=== PATIENT | male | born 1950 | race Caucasian/White ===

== ENCOUNTER → 2020-05-04 08:30 | Outpatient (CLI) | payer OTHER, SELFPAY ==
[2020-05-03 11:32] VITALS: BMI 22.6
--- NOTE | 2020-05-04 08:38 | RAD_ITS ---
STUDY: BARIUM ENEMA. REASON FOR EXAM: Male, 69 years old. INCOMPLETE COLONOSCOPY FLUOROSCOPY TIME (if supplied): ( 61 seconds ) minutes/seconds. 18 images were obtained. TECHNIQUE: A [facility] film was obtained. Following this, contrast was introduced retrograde through the rectum. The entire colon was opacified. COMPARISON: None. FINDINGS: Nonspecific bowel gas pattern. Levoscoliosis. The entire colon was opacified. There is redundancy of the sigmoid colon. There is no evidence of retrograde or antegrade obstruction to the flow of contrast. There is evidence of a cecal bascule. RAD/Barium Enema No Air Cont IMPRESSION: Unremarkable barium enema. Electronically Signed: Ga Piña MD at 10:42 EDT , Service support ,
== END ==
PROVIDERS: PCP Family Medicine; Referring Provider Surgery; Visit Provider Surgery
DX: Q43.8 Other specified congenital malformations of intestine (principal)
CPT/HCPCS: 74270